=== PATIENT | female | born 1995 | race Caucasian/White ===

== ENCOUNTER 2018-11-14 19:46 | Emergency (ER) | payer OTHER ==
[2018-11-14 20:36] LABS: #Basophils 0.1 thou/uL (0.0-0.2); #Eosinphils 0.2 thou/uL (0.0-0.7); #Lymphocytes 2.1 thou/uL (1.20-3.40); #Monocytes 0.7 thou/uL (0.11-0.59); #Neutrophils 3.7 thou/uL (1.40-6.50); %Basophils 1.2 % (0.0-1.0); %Eosinophils 2.9 % (0.0-10.0); %Lymphocytes 30.5 % (28.0-48.0); %Monocytes 10.7 % (0.0-4.0); %Neutrophils 54.7 % (31.0-61.0); Hemoglobin 11.4 g/dL (12.0-16.0); Mean Corpuscular Hemoglobin 31.1 pg (25.0-35.0); Mean Corpuscular Volume 94.2 fL (78.0-98.0); Mean Platelet Volume 6.6 fL (7.4-10.4); Platelet Count 231 thou/uL (130-400); RBC Distribution Width 12.5 % (11.5-14.5); Red Blood Cell (RBC) Count 3.68 mill/uL (4.00-5.20); White Blood Cell (WBC) Count 6.8 thou/uL (4.8-10.8)
--- NOTE | 2018-11-14 22:20 | ULT ---
TRANSABDOMINAL AND TRANSVAGINAL PELVIC ULTRASOUND WITH MOURA SCALE, COLOR FLOW AND SPECTRAL DOPPLER IM AGIN11/14/18 HISTORY: Vaginal bleed, pelvic pain, positive test. IUD. Right sided pelvic pain. FINDINGS: The uterus measures 8.9 x 8.0 x 5.6 cm with an IUD in place. No intrauterine gestation sac is seen. T he right ovary measures 4.2 x 3.4 x 3.4 cm and the left ovary measures 3.2 x 1.8 x 2.2 cm. Flow is de monstrated to both ovaries. There is a complex mass in the right adnexa measuring about 5.9 x 3.1 x 4.8 cm. There is free fluid i n the pelvis adjacent to the right adnexal mass with internal echoes. FINDINGS: Findings are suspicious for a ruptured right sided adnexal ectopic . The findings were discussed over the telephone with ER physician, Dr. Sabino Mckenzie at 10:13 p.m. POS: [facility]
[2018-11-16 21:10] LABS: Chlamydia by PCR Not Detected (NotDetected); GC by PCR Not Detected (NotDetected)
== END 2018-11-14 22:02 | disposition short-term general hospital (02) ==
LOC: SCSER 19:46
DX: O00.90 Unspecified ectopic pregnancy without intrauterine pregnancy (principal); G80.9 Cerebral palsy, unspecified; Z79.899 Other long term (current) drug therapy
CPT/HCPCS: 76856; 84702; 85025; 86900; 86901; 87480; 87491; 87510; 87591; 87660